=== PATIENT | female | born 1975 | race Caucasian/White ===

== ENCOUNTER 2017-06-12 15:59 | Inpatient (IN) | payer MEDICARE, MEDICAID ==
[~2017-06-12] VITALS: Ht 165.1 cm; Wt 69.5 kg
[2017-06-12] MEDS ORDERED: ZOLPIDEM TARTRATE 10 MG TABLET PO PRN (18:15)
[2017-06-12] MEDS ORDERED: LORazepam 2 MG TABLET PO PRN (18:15)
[2017-06-12] MEDS ORDERED: MONT10TA21 PO (18:29)
[2017-06-12] MEDS ORDERED: DULO30CA2 PO (18:29)
[2017-06-12] MEDS ORDERED: TOPI100T37 PO (18:29)
[2017-06-12 18:45] VITALS: BP 110/74
[2017-06-12 20:07] VITALS: BP 114/78
[2017-06-12] MEDS: OLANZapine 7.5 MG TABLET PO SCH (21:01)
[2017-06-12] MEDS: IBUPROFEN 600 MG TABLET PO PRN (21:01)
[2017-06-13 00:08] VITALS: BP 112/68
[2017-06-13 08:30] VITALS: BP 100/60
[2017-06-13] MEDS ORDERED: MAG HYDROX/AL HYDROX/SIMETH ES 30 ML SUSPENSION UDCUP PO PRN (10:00)
[2017-06-13] MEDS ORDERED: LOPERAMIDE HCL 2 MG CAPSULE PO PRN (10:00)
[2017-06-13] MEDS ORDERED: PROMETHAZINE HCL 25 MG TABLET PO PRN (10:00)
[2017-06-13] MEDS ORDERED: TUBERCULIN, PURIFIED PROTEIN DERIVATIVE 5 TU/0.1 ML SYG ID ONE (10:00)
[2017-06-13] MEDS ORDERED: ACETAMINOPHEN 325 MG TABLET PO PRN (10:00)
[2017-06-13] MEDS ORDERED: GuaiFENesin/D-METHORPHAN [SUGAR-FREE] 200-20MG/10 ML SYRUP UDCUP PO PRN (10:00)
[2017-06-13] MEDS ORDERED: MAGNESIUM HYDROXIDE SUSPENSION 30 ML UDCUP PO PRN (10:00)
[2017-06-13] MEDS: NICOTINE 21 MG/24 HOUR PATCH TD SCH (10:07)
[2017-06-13] MEDS: IBUPROFEN 600 MG TABLET PO PRN (16:07)
[2017-06-13 16:12] VITALS: BP 115/83
[2017-06-13] MEDS: THIAMINE HCL 100 MG TABLET PO SCH (16:39)
[2017-06-13] MEDS: OLANZapine 7.5 MG TABLET PO SCH (20:34)
[2017-06-14 02:57] VITALS: BP 112/66
[2017-06-14 08:14] VITALS: BP 123/69
[2017-06-14] MEDS: NICOTINE 21 MG/24 HOUR PATCH TD SCH (08:36)
[2017-06-14] MEDS: FOLIC ACID 1 MG TABLET PO SCH (08:43)
[2017-06-14] MEDS: NALTREXONE HCL 50 MG TABLET PO SCH (08:44)
[2017-06-14] MEDS: THIAMINE HCL 100 MG TABLET PO SCH ×2 (08:44→16:46)
[2017-06-14] MEDS: MULTIVITAMINS WITH MINERALS, THERAPEUTIC TABLET PO SCH (08:44)
[2017-06-14 11:36] VITALS: BP 124/90
[2017-06-14] MEDS: IBUPROFEN 600 MG TABLET PO PRN (11:36)
[2017-06-14 16:16] VITALS: BP 133/76
[2017-06-14] MEDS: OLANZapine 7.5 MG TABLET PO SCH (20:36)
[2017-06-15 08:00] VITALS: BP 115/65
[2017-06-15] MEDS: THIAMINE HCL 100 MG TABLET PO SCH ×2 (08:28→16:40)
[2017-06-15] MEDS: NALTREXONE HCL 50 MG TABLET PO SCH (08:28)
[2017-06-15] MEDS: MULTIVITAMINS WITH MINERALS, THERAPEUTIC TABLET PO SCH (08:28)
[2017-06-15] MEDS: NICOTINE 21 MG/24 HOUR PATCH TD SCH (08:28)
[2017-06-15] MEDS: FOLIC ACID 1 MG TABLET PO SCH (08:28)
[2017-06-15 16:19] VITALS: BP 118/77
[2017-06-15] MEDS: OLANZapine 7.5 MG TABLET PO SCH (20:37)
[2017-06-16 01:01] VITALS: BP 100/60
[2017-06-16] MEDS: MULTIVITAMINS WITH MINERALS, THERAPEUTIC TABLET PO SCH (08:11)
[2017-06-16] MEDS: THIAMINE HCL 100 MG TABLET PO SCH ×2 (08:11→16:38)
[2017-06-16] MEDS: NICOTINE 21 MG/24 HOUR PATCH TD SCH (08:11)
[2017-06-16] MEDS: NALTREXONE HCL 50 MG TABLET PO SCH (08:11)
[2017-06-16] MEDS: FOLIC ACID 1 MG TABLET PO SCH (08:11)
[2017-06-16 08:46] VITALS: BP 107/60
[2017-06-16 17:22] VITALS: BP 109/62
[2017-06-16] MEDS: HydrOXYzine PAMOATE 50 MG CAPSULE PO PRN (17:55)
[2017-06-16] MEDS: OLANZapine 7.5 MG TABLET PO SCH (20:37)
[2017-06-17 06:21] VITALS: BP 108/69
[2017-06-17 07:31] LABS: EOSINOPHILS % (AUTO) 1.7 % (1.0-6.0); HEMATOCRIT 38.1 % (36-46); HEMOGLOBIN 12.9 g/dL (12.0-16.0); LYMPHOCYTES # (AUTO) 2.8 K/uL (1.0-4.8); LYMPHOCYTES % (AUTO) 39.5 % (22.0-44.0); MEAN CORPUSCULAR HEMOGLOBIN 28.9 pg (26.0-34.0); MEAN CORPUSCULAR HGB CONC 33.8 G/dL (31.0-37.0); MEAN CORPUSCULAR VOLUME 85 fL (80-100); MONOCYTES # (AUTO) 0.5 K/uL (0.1-1.0); MONOCYTES % (AUTO) 7.3 % (2.0-9.0); NEUTROPHILS # (AUTO) 3.6 K/uL (1.8-7.7); NEUTROPHILS % (AUTO) 50.5 % (40.0-70.0); PLATELET COUNT (AUTO) 230 K/uL (150-450); RED BLOOD CELL COUNT(AUTO) 4.47 MIL/uL (4.00-5.20); RED CELL DISTRIBUTION WIDTH 11.3 % (11.5-14.5)
[2017-06-17 08:00] VITALS: BP 119/78
[2017-06-17 08:01] LABS: ALANINE AMINOTRANSFERASE 21 U/L (12-78); ALBUMIN 3.5 g/dL (3.4-5.0); ALKALINE PHOSPHATASE 37 U/L (46-116); ANION GAP 7 mmol/L (8-16); ASPARTATE AMINOTRANSFERASE 12 U/L (15-37); BILIRUBIN,TOTAL 0.4 mg/dL (0.1-1.0); CALCIUM, TOTAL 8.8 mg/dL (8.8-10.5); CARBON DIOXIDE 29 mmol/L (22-29); CHLORIDE 108 mmol/L (98-107); CHOL/HDL RATIO 4.7 (3.9-5.7); CHOLESTEROL 174 mg/dL (131-200); CREATININE 0.61 mg/dL (0.60-1.30); FREE T4 (FREE THYROXINE) 0.89 ng/dL (0.76-1.46); GLOMERULAR FILTR. RATE CALC > 60 mL/min (>60); GLUCOSE,RANDOM 84 mg/dL (70-110); HCG,QUANTITATIVE < 1 mIU/mL (0-6); HDL CHOLESTEROL 37 mg/dL (40-60); LDL CHOL (CALC.) 121 mg/dL (0-130); SODIUM SERUM 144 mmol/L (136-145); TRIGLYCERIDES 79 mg/dL (15-150); UREA NITROGEN, BLOOD 11 mg/dL (7-18)
[2017-06-17 08:10] LABS: HEMOGLOBIN A1C 5.5 % (4.5-6.2)
[2017-06-17] MEDS: THIAMINE HCL 100 MG TABLET PO SCH ×2 (08:15→16:32)
[2017-06-17] MEDS: NALTREXONE HCL 50 MG TABLET PO SCH (08:15)
[2017-06-17] MEDS: NICOTINE 21 MG/24 HOUR PATCH TD SCH (08:15)
[2017-06-17] MEDS: MULTIVITAMINS WITH MINERALS, THERAPEUTIC TABLET PO SCH (08:15)
[2017-06-17] MEDS: FOLIC ACID 1 MG TABLET PO SCH (08:15)
[2017-06-17 08:53] LABS: AMPHET/METH SCREEN,URINE NEGATIVE (NEGATIVE); BARBITURATE SCREEN, URINE NEGATIVE (NEGATIVE); BENZODIAZEPINES SCREEN,URINE NEGATIVE (NEGATIVE); CANNABINOID SCREEN,URINE NEGATIVE (NEGATIVE); COCAINE SCREEN,URINE NEGATIVE (NEGATIVE); METHADONE SCREEN, URINE NEGATIVE (NEGATIVE); OPIATE SCREEN,URINE NEGATIVE (NEGATIVE); PHENCYCLIDINE SCREEN,URINE NEGATIVE (NEGATIVE)
[2017-06-17 09:07] LABS: APPEARANCE,URINE CLEAR (CLEAR); BILIRUBIN,URINE NEGATIVE (NEGATIVE); GLUCOSE, URINE (UA) NEGATIVE (NEGATIVE); KETONES,URINE NEGATIVE (NEGATIVE); LEUKOCYTE ESTERASE ,URINE NEGATIVE (NEGATIVE); NITRATE,URINE NEGATIVE (NEGATIVE); OCCULT BLOOD,URINE NEGATIVE (NEGATIVE); PH,URINE 6.5 (5.0-8.0); PROTEIN,URINE NEGATIVE (NEGATIVE)
[2017-06-17] MEDS: HydrOXYzine PAMOATE 50 MG CAPSULE PO PRN (11:20)
[2017-06-17 16:16] VITALS: BP 129/90
[2017-06-17] MEDS: IBUPROFEN 600 MG TABLET PO PRN (16:53)
[2017-06-17] MEDS: OLANZapine 7.5 MG TABLET PO SCH (20:05)
[2017-06-18 01:56] VITALS: BP 103/60
[2017-06-18] MEDS: NALTREXONE HCL 50 MG TABLET PO SCH (08:29)
[2017-06-18] MEDS: FOLIC ACID 1 MG TABLET PO SCH (08:29)
[2017-06-18] MEDS: THIAMINE HCL 100 MG TABLET PO SCH ×2 (08:29→16:01)
[2017-06-18] MEDS: MULTIVITAMINS WITH MINERALS, THERAPEUTIC TABLET PO SCH (08:29)
[2017-06-18] MEDS: NICOTINE 21 MG/24 HOUR PATCH TD SCH (08:30)
[2017-06-18 08:38] VITALS: BP 107/68
[2017-06-18] MEDS ORDERED: ESCITALOPRAM OXALATE 10 MG TABLET PO SCH (09:00)
[2017-06-18] MEDS ORDERED: HydrOXYzine PAMOATE 50 MG CAPSULE ONE (11:13)
[2017-06-18] MEDS: HydrOXYzine PAMOATE 50 MG CAPSULE PO PRN ×2 (11:44→19:13)
[2017-06-18] MEDS: OLANZapine 5 MG RAPDIS TABLET PO PRN (14:32)
[2017-06-18 16:12] VITALS: BP 119/70
[2017-06-18] MEDS: OLANZapine 7.5 MG TABLET PO SCH (20:22)
[2017-06-19 00:30] VITALS: BP 104/63
[2017-06-19] MEDS: THIAMINE HCL 100 MG TABLET PO SCH ×2 (08:06→16:41)
[2017-06-19] MEDS: MULTIVITAMINS WITH MINERALS, THERAPEUTIC TABLET PO SCH (08:06)
[2017-06-19] MEDS: FOLIC ACID 1 MG TABLET PO SCH (08:06)
[2017-06-19] MEDS: NALTREXONE HCL 50 MG TABLET PO SCH (08:06)
[2017-06-19] MEDS: NICOTINE 21 MG/24 HOUR PATCH TD SCH (08:08)
[2017-06-19 08:21] VITALS: BP 119/73
[2017-06-19] MEDS: IBUPROFEN 600 MG TABLET PO PRN (08:43)
[2017-06-19] MEDS ORDERED: OXYBUTYNIN CHLORIDE 5 MG ER TABLET PO SCH (09:00)
[2017-06-19] MEDS ORDERED: ESCITALOPRAM OXALATE 10 MG TABLET PO SCH (09:00)
[2017-06-19] MEDS: HydrOXYzine PAMOATE 50 MG CAPSULE PO PRN ×2 (09:53→18:55)
[2017-06-19] MEDS: OLANZapine 5 MG RAPDIS TABLET PO PRN ×2 (12:49→17:12)
[2017-06-19] MEDS ORDERED: IBUPROFEN 400 MG TABLET PO PRN (13:30)
[2017-06-19 16:52] VITALS: BP 131/78
[2017-06-19] MEDS ORDERED: IBUPROFEN 400 MG TABLET PO ONE (19:45)
[2017-06-19] MEDS ORDERED: OLANZapine 10 MG TABLET PO SCH (21:00)
[2017-06-19] MEDS ORDERED: OLAN10TA3 PO (23:16)
[2017-06-19] MEDS ORDERED: FOLI1 PO (23:16)
[2017-06-19] MEDS ORDERED: ESCI10TA PO (23:16)
[2017-06-19] MEDS ORDERED: OXYB5XL PO (23:16)
[2017-06-19] MEDS ORDERED: THIA100 PO (23:16)
[2017-06-19] MEDS ORDERED: NALT50TA6 PO (23:16)
[2017-06-19] MEDS ORDERED: MULT-1239 PO (23:21)
[2017-06-20] MEDS ORDERED: DICLOFENAC SODIUM 1% 100 GM GEL [2GM] TP SCH (09:00)
== END 2017-06-20 00:45 | disposition left against medical advice (07) | DRG 885 ==
LOC: B2X 18:11
PROVIDERS: ADMIT Psychiatry & Neurology Psychiatry; ATTEND Psychiatry & Neurology Psychiatry
DX: F25.0 Schizoaffective disorder, bipolar type (principal); R45.851 Suicidal ideations; Z91.19 Patient's noncompliance with other medical treatment and regimen; Z53.21 Procedure and treatment not carried out due to patient leaving prior to being seen by health care provider; G47.00 Insomnia, unspecified; Z88.5 Allergy status to narcotic agent; Z88.0 Allergy status to penicillin; Z88.2 Allergy status to sulfonamides; Z88.8 Allergy status to other drugs, medicaments and biological substances
CPT/HCPCS: 80307; 83036; 84439; 84443